=== PATIENT | female | born 2005 | race Caucasian/White ===

== ENCOUNTER 2024-05-16 13:44 | Outpatient (CLI) | payer OTHER, SELFPAY ==
[2024-05-17 00:27] LABS: Chlamydia DNA Amplified* NOT DETECTED (No Detected); GC DNA Amplified* NOT DETECTED (No Detected)
== END 2024-05-16 13:45 | disposition home or self-care (01) ==
LOC: NFLDUCREF 13:46
PROVIDERS: Visit Provider Nurse Practitioner
DX: R10.9 Unspecified abdominal pain (principal); N93.9 Abnormal uterine and vaginal bleeding, unspecified
CPT/HCPCS: 87491; 87591

== ENCOUNTER 2025-03-16 14:29 | Outpatient (CLI) | payer OTHER, SELFPAY ==
[2025-03-16 15:04] LABS: Cannabinoid Screen Urine Negative (Negative); Methamphetamines Screen Urine Negative (Negative); Tricyclic Antidepressant Urine Negative (Negative)
== END 2025-03-16 14:30 | disposition home or self-care (01) ==
PROVIDERS: Visit Provider Nurse Practitioner Psychiatric/Mental Health
DX: F90.0 Attention-deficit hyperactivity disorder, predominantly inattentive type (principal)
CPT/HCPCS: 80306